=== PATIENT | male | born 1950 | race Caucasian/White ===

== ENCOUNTER → 2016-09-27 | Outpatient (CLI) | payer BC ==
[2016-09-27 15:15] LABS: ASPARTATE AMINO TRANSFERASE 29 IU/L (21-57); BILIRUBIN,TOTAL 0.6 mg/dL (0.3-1.2); BLOOD UREA NITROGEN 20 mg/dL (7-22); CALCIUM 9.8 mg/dL (8.7-10.7); CHLORIDE 104 meq/L (98-112); EST GLOMERULAR FILTRATION > 60 (>60 ml/min/1.73m(2)); GLUCOSE 99 mg/dL (78-110); HDL CHOLESTEROL 50 mg/dL (40-150); POTASSIUM 4.8 meq/L (3.8-5.2); SODIUM 140 meq/L (135-145); TOTAL PROTEIN 7.4 g/dL (6.1-8.0); TRIGLYCERIDES 151 mg/dL (44-200)
== END ==
LOC: LAB 08:46
PROVIDERS: ATTEND Physician Assistant Medical
DX: Z00.00 Encounter for general adult medical examination without abnormal findings (principal); E78.2 Mixed hyperlipidemia
CPT/HCPCS: 80053; 80061

== ENCOUNTER 2018-09-06 10:02 | Observation (INO) ==
[~2018-09-06 10:02] MED LIST: LIDOCAINE W/ SODIUM BICARB 0.5 ML SYR ONE; LIDOCAINE W/ SODIUM BICARB 0.5 ML SYR SUBD ONE; Lactated Ringers 1,000 ML PRIMARY IV ONE; Nasal Sanitizer POPSWAB ampule 3 AMP (Nozin) PREOP DOSE ENOS SCH; ceFAZolin Inj 2gm (Premix) 2 GM/50 ML BAG IV ONE
[2018-09-06] MEDS: Lactated Ringers 1,000 ML PRIMARY IV SCH ×2 (10:43→17:10)
[2018-09-06] MEDS ORDERED: BUPivacaine Inj 0.5% PF (5mg/ml) 30ml vial INFIL SCH (11:45)
[2018-09-06] MEDS ORDERED: BUPivacaine Inj 0.5% PF (5mg/ml) 10ml vial ONE (12:26)
[2018-09-06] MEDS ORDERED: ROCURONIUM 10 MG/1 ML - 5 ML VIAL IVP ONE (12:28)
[2018-09-06] MEDS ORDERED: fentaNYL Inj 250 MCG/5 ML VIAL ONE (12:30)
[2018-09-06] MEDS ORDERED: MIDAZOLAM HCL 2 MG/2 ML VIAL ONE (12:30)
[2018-09-06] MEDS ORDERED: PROPOFOL 10 MG/1 ML (200 MG/20 ML) VIAL IV ONE (12:31)
[2018-09-06] MEDS ORDERED: LIDOCAINE MPF 2% - 5 ML (20 MG/1 ML) ONE (12:31)
[2018-09-06] MEDS ORDERED: BUPivacaine Inj 0.25% PF - 10ml vial ONE ×2 (13:24→14:34)
[2018-09-06] MEDS ORDERED: KETAMINE HCL 100 MG/2 ML SYRINGE IV ONE (13:27)
[2018-09-06] MEDS ORDERED: EPINEPHrine Inj (1:1,000) 30mg/30ml vial ONE (13:34)
[2018-09-06] MEDS ORDERED: Lactated Ringers 1,000 ML PRIMARY IV ONE (13:57)
[2018-09-06] MEDS ORDERED: SUGAMMADEX SODIUM 200 MG/2 ML VIAL IV ONE (14:26)
[2018-09-06] MEDS ORDERED: fentaNYL Inj 100 MCG/2 ML VIAL IVP PRN (15:01)
[2018-09-06] MEDS ORDERED: HYDROmorphone 2 MG/1 ML IVP PRN (15:01)
[2018-09-06] MEDS ORDERED: LIDOCAINE W/ SODIUM BICARB 0.5 ML SYR SUBD PRN (15:01)
--- NOTE | 2018-09-06 15:01 | CRNA.PROGR ---
Anesthesia Time - Procedure/Recovery Time Start Date: 09/06/18 End Date: 09/06/18 Anesthesia : Time In: 12:35 Anesthesia : Time Out: 14:55 Anesthesia : Total Time: 140 - Total Anesthesia Time Total Anesthesia Time (minutes): 140 - Other Weight: 97.976 kg Height: 5 ft 9 in Body Mass Index (BMI): 31.8 Physical Status: P2 Anesthesia Type: General Anesthesia : ET
--- NOTE | 2018-09-06 15:02 | CRNA.PROGR ---
Anesthesia Recovery Phase I - Post Anesthesia Evaluation Patient's Condition on Arrival in Phase I: Stable Pain Level: 5
[2018-09-06] MEDS ORDERED: HYDROmorphone 2 MG/1 ML ONE (15:07)
[2018-09-06] MEDS ORDERED: KETOROLAC 30 MG/1 ML VIAL ONE ×2 (15:07→15:12)
[2018-09-06] MEDS ORDERED: KETOROLAC 60 MG/2 ML VIAL IM ONE (15:08)
--- NOTE | 2018-09-06 15:09 | ORTHO.OP ---
Surgery Date: 09/06/18 Preoperative Diagnosis: #1 chronic impingement syndrome bursitis right shoulder #2 acromioclavicular joint arthritis Postoperative Diagnosis: Same Procedure: #1 right shoulder arthroscopic subacromial decompression with bursectomy #2 open right distal clavicle excision Surgeon: Rafael Padron MD [facility] Coordinator: JAY Alexnader Anesthesia Provider: José Villatoro CRNA Anesthesia Type: General Estimated Blood Loss (mL): 10 Fluids: 1600 mL crystalloid Complications: None Operative Summary: Extubated awakened and taken to recovery in stable condition.
[2018-09-06] MEDS ORDERED: KETOROLAC 30 MG/1 ML VIAL IVP PRN (15:15)
[2018-09-06] MEDS ORDERED: Lactated Ringers 1,000 ML PRIMARY IV SCH (15:15)
[2018-09-06] MEDS ORDERED: KETOROLAC 15 MG/1 ML VIAL IVP PRN (15:18)
[2018-09-06] MEDS ORDERED: BISACODYL 10 MG SUPPOSITORY RECTAL PRN (16:29)
[2018-09-06] MEDS ORDERED: Prochlorperazine Tab 10 MG TAB PO PRN (16:29)
[2018-09-06] MEDS ORDERED: diphenhydrAMINE 25 MG CAPSULE PO PRN (16:29)
[2018-09-06] MEDS ORDERED: MAG HYDROX/AL HYDROX/SIMETH 30 ML SUSP PO PRN (16:29)
[2018-09-06] MEDS ORDERED: CELECOXIB 200 MG CAPSULE PO PRN (16:29)
[2018-09-06] MEDS ORDERED: CALCIUM CARBONATE 500 MG (TUMS) CHEWABLE TABLET PO PRN (16:29)
[2018-09-06] MEDS ORDERED: IBUPROFEN 400 MG TABLET PO PRN (16:29)
[2018-09-06] MEDS ORDERED: Ondansetron ODT Tab 8 MG TAB PO PRN (16:29)
[2018-09-06] MEDS ORDERED: ACETAMINOPHEN 325 MG TABLET PO PRN (16:29)
[2018-09-06] MEDS ORDERED: ONDANSETRON 4 MG/2 ML VIAL IVP PRN (16:29)
[2018-09-06] MEDS ORDERED: BISACODYL 5 MG TABLET PO PRN (16:29)
[2018-09-06] MEDS ORDERED: LIDOCAINE HCL 2 % 10 ML JELLY URO-JECT TOPICAL PRN (16:29)
[2018-09-06] MEDS: D5-1/2NS + 20mEq KCL 1,000 ML PRIMARY IV SCH (18:00)
[2018-09-06] MEDS ORDERED: MORPHINE SULFATE 2 MG/1 ML IVP PRN (18:29)
[2018-09-06] MEDS: TAMSULOSIN 0.4 MG CAPSULE PO SCH (21:41)
[2018-09-06] MEDS: ceFAZolin Inj 2gm (Premix) 2 GM/50 ML BAG IV SCH (21:41)
[2018-09-06] MEDS: oxyCODONE/APAP 7.5/325 Tab 1 TAB TAB PO PRN (21:41)
[2018-09-06] MEDS: GABAPENTIN 300 MG CAPSULE PO SCH (21:41)
[2018-09-06] MEDS: PANTOPRAZOLE 40 MG TABLET PO SCH (21:42)
[2018-09-07] MEDS: D5-1/2NS + 20mEq KCL 1,000 ML PRIMARY IV SCH (04:36)
[2018-09-07] MEDS: ceFAZolin Inj 2gm (Premix) 2 GM/50 ML BAG IV SCH (04:36)
[2018-09-07] MEDS ORDERED: HYDROCHLOROTHIAZIDE 12.5 MG CAPSULE PO SCH (07:00)
[2018-09-07 07:17] VITALS: BP 132/81; RESP 18; TEMP 97; O2SAT 93
[2018-09-07] MEDS: oxyCODONE/APAP 7.5/325 Tab 1 TAB TAB PO PRN (07:24)
[2018-09-07] MEDS: TAMSULOSIN 0.4 MG CAPSULE PO SCH (08:25)
[2018-09-07] MEDS: PANTOPRAZOLE 40 MG TABLET PO SCH (08:25)
[2018-09-07] MEDS: GABAPENTIN 300 MG CAPSULE PO SCH (08:26)
--- NOTE | 2018-09-07 08:28 | ORTHO.PROG ---
Last Taken Vital Signs: Vital Signs - Last Taken Temperature 97 F 09/07/18 07:16 Pulse Rate 68 09/07/18 07:16 Respiratory Rate 18 09/07/18 07:16 Blood Pressure 132/81 09/07/18 07:16 Pulse Ox 93 09/07/18 07:16 Subjective: Patient sitting up in bed. Not complaining of much pain. Would like to go home. Objective: Vital signs stable patient afebrile. Right shoulder dressings clean and dry. Pain pump is working. Assessment: Impression: Doing well postop day 1 from right shoulder scope decompression bursectomy distal clavicle excision Plan: Plan: We'll discharge the patient home today. I will arrange to take his pain pump out some time on Tuesday.
[2018-09-07] MEDS ORDERED: LISINOPRIL 10 MG TABLET PO SCH (09:00)
--- NOTE | 2018-09-07 16:09 | OPS SHOULD ---
Diagnosis : Biceps Tenodesis Referral Reason: Instruction in Activities of Daily Living O: The patient was able to get up and ambulate approximately 40 feet. He was very wobbly. It is good that the patient stayed the night as he does live at home by himself. The patient was educated in his shoulder precautions and was positioned comfortably in bed. We will go over shoulder do's and don'ts tomorrow. P: No further therapy is indicated at this time. The patient will begin outpatient physical therapy. MADELAINE
--- NOTE | 2018-09-07 16:10 | OT AM DAY ---
Diagnosis : Biceps Tenodesis AM - Occupational Therapy S: The patient reports he is doing a lot better today. O: The patient did ambulate 50 feet. The patient had good balance and was able to turn and transfer independently. The patient was educated on shoulder precautions, how to dress, and was asked to ice his shoulder frequently for the next few days to decrease inflammation. P: No further therapy is indicated at this time. The patient will begin outpatient therapy in [place]. MADELAINE
[2018-09-08] MEDS ORDERED: LISINOPRIL 10 MG TABLET PO SCH (07:00)
== END 2018-09-07 10:05 | disposition home or self-care (01) ==
LOC: MED/SURG 10:02 → OR 10:02 → OPS 10:08
PROVIDERS: ADMIT Orthopaedic Surgery; ATTEND Orthopaedic Surgery